=== PATIENT | female | born 1995 | race Caucasian/White ===

== ENCOUNTER 2019-04-03 16:40 | Emergency (ER) | payer MEDICAID ==
[~2019-04-03] VITALS: Ht 162.6 cm; Wt 104.3 kg
--- NOTE | 2019-04-03 16:41 | NUR ---
called for pt. pt in the bathroom.
[2019-04-03] MEDS ORDERED: ALBUTEROL SULFATE 2.5 MG/3 ML NEBU NEB ONE (17:00)
[2019-04-03] MEDS ORDERED: IV NORMAL SALINE 1000 ML BAG IV ONE (17:00)
[2019-04-03] MEDS ORDERED: ALBUTEROL SULFATE 2.5 MG/3 ML NEBU ONE (17:04)
--- NOTE | 2019-04-03 17:12 | NUR ---
PT IS IN ROOM #2B. DR CAMACHO EVALUATED THE PT.
[2019-04-03 17:18] LABS: BASOPHILS # (AUTO) 0.2 K/uL (0.0-8.0); BASOPHILS % (AUTO) 1.2 % (0.0-2.0); EOSINOPHILS # (AUTO) 0.1 K/uL (0.0-0.7); EOSINOPHILS % (AUTO) 0.5 % (0.0-7.0); HEMATOCRIT 42.2 % (31.2-41.9); HEMOGLOBIN 13.6 g/dL (10.9-14.3); LYMPHOCYTES # (AUTO) 1.9 K/uL (20.0-40.0); LYMPHOCYTES % (AUTO) 13.1 % (20.5-51.5); MEAN CORPUSCULAR HEMOGLOBIN 27.1 uug (24.7-32.8); MEAN CORPUSCULAR HGB CONC 32 g/dL (32.3-35.6); MEAN CORPUSCULAR VOLUME 84.4 fL (75.5-95.3); MONOCYTES # (AUTO) 1.5 K/uL (2.0-10.0); MONOCYTES % (AUTO) 10.3 % (0.0-11.0); NEUTROPHILS # (AUTO) 10.9 K/uL (1.8-8.9); NEUTROPHILS % (AUTO) 74.9 % (38.5-71.5); PLATELET COUNT (AUTO) 338 K/uL (179-408); WHITE BLOOD COUNT (AUTO) 14.6 K/uL (3.8-11.8)
[2019-04-03 17:24] LABS: CREATININE 0.8 mg/dL (0.6-1.3); POTASSIUM 3.7 mmol/L (3.5-5.1)
[2019-04-03 17:30] LABS: BILIRUBIN,DIRECT 0.1 mg/dL (0.0-0.2); BILIRUBIN,TOTAL 0.6 mg/dL (0.2-1.0); TOTAL PROTEIN, SERUM 8.8 g/dL (6.4-8.2)
[2019-04-03] MEDS ORDERED: SWABABLE VALVE TRANSFER SET EA MC ONE (18:25)
[2019-04-03] MEDS ORDERED: IV NORMAL SALINE 250 ML IV ONE (18:26)
[2019-04-03] MEDS ORDERED: IOHEXOL 350 100 ML INFUS..BTL ONE (18:26)
--- NOTE | 2019-04-03 19:02 | NUR ---
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
--- NOTE | 2019-04-03 19:19 | NUR ---
BACK FORM CT CAN VIA orderboltNEY .
--- NOTE | 2019-04-03 20:03 | NUR ---
PATIENT GIVEN COPY OF HER CHEST XRAY SHOW NO EVIDENCE OF CARDIOPULMONARY DISEASE AND HER CT CHEST XRAY NO PE . NO RESPIRATORY DISTRESS NOTES RR 18 AND SATURATION 98%.
--- NOTE | 2019-04-03 20:05 | NUR ---
Patient discharged to home in stable conditon. Written and verbal after care instructions given. Patient verbalizes understanding of instructions.ADVISED TO CALL 911 IF EMERGENCY ARISES ,PATIENT V/S WNL AND WENT HOME WITH MOTHER AND WITH PATIENT BELONGINGS.
[2019-04-03 20:14] VITALS: BP 125/66
== END 2019-04-03 20:14 | disposition home or self-care (01) ==
LOC: ER 16:40
DX: F15.10 Other stimulant abuse, uncomplicated (principal); R06.02 Shortness of breath; J45.909 Unspecified asthma, uncomplicated; F31.9 Bipolar disorder, unspecified; F12.10 Cannabis abuse, uncomplicated; F17.200 Nicotine dependence, unspecified, uncomplicated; Z88.8 Allergy status to other drugs, medicaments and biological substances
CPT/HCPCS: 36415; 71045; 71275; 80048; 80076; 84484; 84702; 85025; 85379; 85610; 86850; 86900; 86901; 86920; 93005 ×2; 94640; 99284; Q9967; 70030-TC; A4663; J7030; J7050

== ENCOUNTER 2019-06-24 11:12 | Emergency (ER) | payer MEDICAID ==
[~2019-06-24] VITALS: Ht 162.6 cm; Wt 102.5 kg
== END 2019-06-24 12:45 | disposition home or self-care (01) ==
LOC: ER 11:13
DX: S42.302D Unspecified fracture of shaft of humerus, left arm, subsequent encounter for fracture with routine healing (principal); F31.9 Bipolar disorder, unspecified; F17.200 Nicotine dependence, unspecified, uncomplicated; W19.XXXD Unspecified fall, subsequent encounter
CPT/HCPCS: 73060; A4663